=== PATIENT | male | born 1935 | race Caucasian/White ===

== ENCOUNTER 2016-05-17 10:38 | Emergency (ER) | payer MEDICARE, BC ==
[~2016-05-17] VITALS: Ht 177.8 cm; Wt 80.0 kg
[~2016-05-17 10:38] MED LIST: ASPI81TA82 PO; ATOR40TA49; METO50; OMPR20CCR; SYNT75TA OR; [UNRECOGNIZED DRUG - CODE] PO
[2016-05-17 10:40] VITALS: BP 166/74; PULSE 89; RESP 14; TEMP 98; O2SAT 97
[2016-05-17] MEDS ORDERED: ceFAZolin 2 GM PREMIX 50 ML IV ONE (12:00)
[2016-05-17] MEDS ORDERED: LEVOFLOXACIN 750 MG TAB PO ONE (12:00)
[2016-05-17] MEDS ORDERED: DOXYCYCLINE HYCLATE 100 MG TAB PO ONE (12:00)
[2016-05-17] MEDS ORDERED: TETANUS/DIPHTHERIA TOXOID ADULT 0.5 ML VIAL IM ONE (12:00)
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
--- NOTE | 2016-05-17 12:22 | RADRPT ---
EXAM DATE/TIME: 05/17/2016 12:08 [facility] COMPARISON: No previous studies available for comparison. INDICATIONS : Fall - right ankle pain and swelling. MEDICAL HISTORY : None. SURGICAL HISTORY : None. ENCOUNTER: Initial ACUITY: 4 - 6 days PAIN SCORE: 9/10 LOCATION: Right ankle FINDINGS: Three view exam was performed of the right ankle. The bony structures are in normal alignment. No e vidence of acute fracture or malalignment. There is soft tissue swelling over the ankle. The ankle mo rtise is intact. No radiopaque foreign bodies are seen. Bony mineralization is normal. CONCLUSION: Soft tissue swelling with no acute fracture or malalignment. Amarjit Matos MD on May 17, 2016 at 12:20 Board Certified Radiologist. This report was verified electronically.
--- NOTE | 2016-05-17 12:46 | RADRPT ---
EXAM DATE/TIME: 05/17/2016 12:20 [facility] COMPARISON: No previous studies available for comparison. INDICATIONS : Pain and swelling in right lower extremity. MEDICAL HISTORY : Carcinoma, bladder. Hypercholesterolemia. Aortic stenosis. Thyroid disease. GERD. TIA. SURGICAL HISTORY : Cholecystectomy. Aortic valve replacement. TURP. Pins in right hand. ENCOUNTER: Initial ACUITY: 2 weeks PAIN SCORE: 5/10 LOCATION: Right leg. TECHNIQUE: Venous ultrasound of the leg was performed from the inguinal ligament to the proximal calf. Real-marielle e, color Doppler and spectral tracing, compression and augmentation techniques were used. FINDINGS: There is normal compressibility of the deep venous system from the inguinal region to the proximal ca lf. No echogenic clot is seen in the lumen of the common femoral, femoral, popliteal, and posterior tibial veins. There is a normal response of the venous system to proximal and distal augmentation an d respiration. Edema is noted in the right calf region. CONCLUSION: Negative exam with no evidence of deep venous thrombosis. There is edema in the right calf region. Amarjit Matos MD on May 17, 2016 at 12:44 Board Certified Radiologist. This report was verified electronically.
[2016-05-17 13:23] LABS: AUTOMATED NEUTROPHIL # 4.7 TH/MM3 (1.8-7.7); BASOPHIL % 0.3 % (0.0-2.0); EOSINOPHIL # 0.2 TH/MM3 (0-0.4); EOSINOPHIL % 2.6 % (0.0-4.0); HEMATOCRIT 39.2 % (39.0-51.0); HEMO FLAGS DIFF FINAL; LYMPH % 16.7 % (9.0-44.0); LYMPHOCYTE # 1.1 TH/MM3 (1.0-4.8); MEAN CORPUSCULAR HEMOGLOBIN 32.6 PG (27.0-34.0); NEUT % 72.4 % (16.0-70.0); PLATELET COUNT 154 TH/MM3 (150-450); RED BLOOD COUNT 4.08 MIL/MM3 (4.50-5.90); RED CELL DISTRIBUTION WIDTH 13.7 % (11.6-17.2); WHITE BLOOD COUNT 6.5 TH/MM3 (4.0-11.0)
[2016-05-17 13:33] LABS: APTT (PATIENT) 30.8 SEC (24.3-30.1); PROTHROMBIN TIME - PATIENT 11.1 SEC (9.8-11.6)
[2016-05-17 13:42] LABS: ALT (GPT) 30 U/L (12-78); ANION GAP 6 MEQ/L (5-15); AST (GOT) 21 U/L (15-37); BICARBONATE 26.3 MEQ/L (21.0-32.0); BLOOD UREA NITROGEN 22 MG/DL (7-18); CHLORIDE 106 MEQ/L (98-107); GLOMERULAR FILTRATION RATE 57 ML/MIN (>89); POTASSIUM 4.2 MEQ/L (3.5-5.1); SODIUM (NA) 138 MEQ/L (136-145)
[2016-05-17 13:45] LABS: ALKALINE PHOSPHATASE 72 U/L (45-117); TOTAL BILIRUBIN ADULT 0.6 MG/DL (0.2-1.0)
[2016-05-17] MEDS ORDERED: CEPH-460 PO (14:06)
[2016-05-17] MEDS ORDERED: DOXY100C PO (14:06)
[2016-05-17] MEDS ORDERED: LEVA750T PO (14:06)
[2016-05-17 14:46] VITALS: BP 146/70
== END 2016-05-17 15:21 | disposition home or self-care (01) ==
LOC: NEPC 10:38
DX: L03.115 Cellulitis of right lower limb (principal); M79.661 Pain in right lower leg; R60.0 Localized edema; E78.00 Pure hypercholesterolemia, unspecified; Z79.01 Long term (current) use of anticoagulants; Z86.73 Personal history of transient ischemic attack (TIA), and cerebral infarction without residual deficits; K21.9 Gastro-esophageal reflux disease without esophagitis; E07.9 Disorder of thyroid, unspecified; Z23 Encounter for immunization; W27.8XXA Contact with other nonpowered hand tool, initial encounter; Y99.8 Other external cause status
CPT/HCPCS: 73610; 80053; 85025; 85610; 85730; 87040; 90471; 90714; 93971; 96365; 99284; J0690

== ENCOUNTER 2017-05-22 23:39 | Emergency (ER) | payer MEDICARE, BC ==
[~2017-05-22] VITALS: Ht 177.8 cm; Wt 79.5 kg
[~2017-05-22 23:39] MED LIST changes: +CEPH-460 PO; +DOXY100C PO; +LEVA750T PO
[2017-05-22 23:42] VITALS: BP 190/81; PULSE 74; RESP 16; TEMP 98.2; O2SAT 99
[2017-05-23] MEDS ORDERED: LIDOCAINE HCL 1% 50 ML VIAL INFIL ONE (00:30)
[2017-05-23] MEDS ORDERED: CLINDAMYCIN INJ 600 MG in SODIUM CHLORIDE 0.9% INJ 100 ML IV ONE (00:30)
--- NOTE | 2017-05-23 00:30 | PD ---
HPI Chief Complaint: Skin Problem Time Seen by Provider: 00:16 Travel History International Travel<30 days: No Contact w/Intl Traveler<30days: No Traveled to known affect area: No History of Present Illness HPI The patient is a 81-year-old male who presents to the emergency department for swelling in the right armpit that is now associated with erythema. The patient states the swelling started 2 days ago, the erythema started earlier today and is spread to the anterior chest wall. He denies any fever, chills, or sweats. He does note the area is somewhat tender to palpation. The patient has not followed up with his primary physician, who is Dr. Spears. The patient denies any history of continuing MRSA infections. 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 He denies any immunosuppressive medications or drugs. Symptoms are moderate, there are no current alleviating or exacerbating factors. He denies any drainage from the affected area. 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) GERD: Yes Medical other: Yes ([place]) Musculoskeletal: No Neurologic: No Thyroid Disease: Yes Tetanus Vaccination: < 5 Years Influenza Vaccination: Yes Past Surgical History Abdominal Surgery: No Cardiac Surgery: Yes (aortic valve replacement, LOOP RECORDER IN PLACE) Cholecystectomy: Yes Ear Surgery: No Endocrine Surgery: No Eye Surgery: No Genitourinary Surgery: Yes (turp) Gynecologic Surgery: No Oral Surgery: No Thoracic Surgery: No Other Surgery: Yes (pins in his right hand) Social History Alcohol Use: Yes (rarely) Tobacco Use: No Substance Use: No Allergies-Medications (Allergen,Severity, Reaction): Coded Allergies: No Known Allergies (Unverified , 08/28/11) Reported Meds & Prescriptions Reported Meds & Active Scripts Active Doxycycline Hyclate 100 Mg Cap 100 Mg PO BID Keflex (Cephalexin) 500 Mg Cap 500 Mg PO Q12H 10 Days Levaquin (Levofloxacin) 750 Mg Tab 750 Mg PO DAILY 5 Days Reported Prilosec 20 Mg Cap (Omeprazole) 20 Mg Capcr 20 Mg .XX Aspir-81 (Aspirin) 81 Mg Tab 81 Mg PO Fish Oil [id number] Mg 1,000 Mg Cap 1,200 Mg PO Lipitor 40 Mg Tab (Atorvastatin Calcium) 40 Mg Tab 40 Mg .XX Lopressor (Metoprolol Tartrate) 50 Mg Tab 12.5 Mg .XX Synthroid 75 mcg (Levothyroxine Sodium) 75 Mcg Tab 75 Mcg OR DAILY Review of Systems Except as stated in HPI: all other systems reviewed are Neg General / Constitutional: No: Fever, Chills Skin: Positive Other (As noted in history of present illness) Endocrine: No: Other (Denies any history diabetes) Physical Exam Narrative GENERAL: Awake, alert, pleasant 81-year-old male who appears his stated age and is in no acute respiratory distress. SKIN: Focused skin assessment warm/dry. HEAD: Atraumatic. Normocephalic. EYES: No injection or drainage. ENT: No nasal bleeding or discharge. Mucous membranes pink and moist. NECK: Trachea midline. No JVD. Chest: The patient has an abscess in the right axilla which measures about 3.5 cm x 2.5 cm. Underlying fluctuance noted. Surrounding erythema noted. MUSCULOSKELETAL: No obvious deformities. No clubbing. No cyanosis. No edema. NEUROLOGICAL: Awake and alert. No obvious cranial nerve deficits. Motor grossly within normal limits. Normal speech. PSYCHIATRIC: Appropriate mood and affect; insight and judgment normal. Data Data Last Documented VS Vital Signs Date Time Temp Pulse Resp B/P (MAP) Pulse Ox O2 Delivery O2 Flow Rate FiO2 05/22/17 23:42 98.2 74 16 190/81 (117) 99 Orders Orders Basic Metabolic Panel (Bmp) (05/23/17 00:23) Complete Blood Count With Diff (05/23/17:23) Blood Culture (05/23/17 00:23) Wound Culture And Gram Stain (05/23/17 00:23) Iv Access Insert/Monitor (05/23/17:23) Lidocaine 1% Inj (50 Ml) (Xylocaine 1% I (05/23/17 00:30) Clindamycin Inj (Cleocin Inj) (05/23/17 00:30) Lactic Acid (05/23/17 00:23) Labs Laboratory Tests Test 05/23/17 00:40 White Blood Count 7.3 TH/MM3 Red Blood Count 4.20 MIL/MM3 Hemoglobin 13.9 GM/DL Hematocrit 40.0 % Mean Corpuscular Volume 95.2 FL Mean Corpuscular Hemoglobin 33.2 PG Mean Corpuscular Hemoglobin Concent 34.9 % Red Cell Distribution Width 14.1 % Platelet Count 161 TH/MM3 Mean Platelet Volume 8.2 FL Neutrophils (%) (Auto) 63.4 % Lymphocytes (%) (Auto) 23.7 % Monocytes (%) (Auto) 8.6 % Eosinophils (%) (Auto) 3.8 % Basophils (%) (Auto) 0.5 % Neutrophils # (Auto) 4.6 TH/MM3 Lymphocytes # (Auto) 1.7 TH/MM3 Monocytes # (Auto) 0.6 TH/MM3 Eosinophils # (Auto) 0.3 TH/MM3 Basophils # (Auto) 0.0 TH/MM3 CBC Comment DIFF FINAL Differential Comment Blood Urea Nitrogen 25 MG/DL Creatinine 1.52 MG/DL Random Glucose 94 MG/DL Calcium Level 9.0 MG/DL Sodium Level 138 MEQ/L Potassium Level 4.0 MEQ/L Chloride Level 103 MEQ/L Carbon Dioxide Level 29.3 MEQ/L Anion Gap 6 MEQ/L Estimat Glomerular Filtration Rate 44 ML/MIN Lactic Acid Level 1.0 mmol/L [facility] Medical Decision Making Medical Screen Exam Complete: Yes Emergency Medical Condition: Yes Medical Record Reviewed: Yes Interpretation(s) Laboratory Tests Test 05/23/17 00:40 White Blood Count 7.3 TH/MM3 Red Blood Count 4.20 MIL/MM3 Hemoglobin 13.9 GM/DL Hematocrit 40.0 % Mean Corpuscular Volume 95.2 FL Mean Corpuscular Hemoglobin 33.2 PG Mean Corpuscular Hemoglobin Concent 34.9 % Red Cell Distribution Width 14.1 % Platelet Count 161 TH/MM3 Mean Platelet Volume 8.2 FL Neutrophils (%) (Auto) 63.4 % Lymphocytes (%) (Auto) 23.7 % Monocytes (%) (Auto) 8.6 % Eosinophils (%) (Auto) 3.8 % Basophils (%) (Auto) 0.5 % Neutrophils # (Auto) 4.6 TH/MM3 Lymphocytes # (Auto) 1.7 TH/MM3 Monocytes # (Auto) 0.6 TH/MM3 Eosinophils # (Auto) 0.3 TH/MM3 Basophils # (Auto) 0.0 TH/MM3 CBC Comment DIFF FINAL Differential Comment Blood Urea Nitrogen 25 MG/DL Creatinine 1.52 MG/DL Random Glucose 94 MG/DL Calcium Level 9.0 MG/DL Sodium Level 138 MEQ/L Potassium Level 4.0 MEQ/L Chloride Level 103 MEQ/L Carbon Dioxide Level 29.3 MEQ/L Anion Gap 6 MEQ/L Estimat Glomerular Filtration Rate 44 ML/MIN Lactic Acid Level 1.0 mmol/L Differential Diagnosis Differential diagnosis includes abscess, cellulitis, infected wound, lymphadenitis. Narrative Course Labs are drawn and sent. CBC and lactic acid were sent to lab. The patient's abscess was open, incised, drained by the physician food and nutrition services assistant. Please refer to the procedure note. Blood culture and wound culture were sent to lab. White count is normal. Lactic acid is unremarkable. The patient will be treated with clindamycin while cultures are pending. He is advised to follow-up with his primary physician. Return if symptoms worsen or progress. Diagnosis Primary Impression: Cellulitis and abscess of unspecified site Patient Instructions: General Instructions Additional Instructions: Medications as directed. Apply warm compresses to the affected area. Follow- up with your primary physician. Return if symptoms worsen or progress. Med/Other Pt SpecificInfo: Prescription(s) given Scripts Clindamycin (Cleocin) 150 Mg Cap 150 MG PO Q6H for Infection for 7 Days, #28 CAP 0 Refills Prov: Agus Leung MD 05/23/17 Disposition: DISCHARGE HOME Condition: Stable Agus Leung MD May 23, 2017 00:30
[2017-05-23 00:58] LABS: AUTOMATED NEUTROPHIL # 4.6 TH/MM3 (1.8-7.7); BASOPHIL % 0.5 % (0.0-2.0); EOSINOPHIL # 0.3 TH/MM3 (0-0.4); EOSINOPHIL % 3.8 % (0.0-4.0); HEMOGLOBIN 13.9 GM/DL (13.0-17.0); LYMPH % 23.7 % (9.0-44.0); LYMPHOCYTE # 1.7 TH/MM3 (1.0-4.8); MEAN CELL VOLUME 95.2 FL (80.0-100.0); MEAN CORPUSCULAR HEMOGLOBIN 33.2 PG (27.0-34.0); MEAN CORPUSCULAR HGB CONC 34.9 % (32.0-36.0); MEAN PLATELET VOLUME 8.2 FL (7.0-11.0); MONO % 8.6 % (0.0-8.0); MONOCYTE # 0.6 TH/MM3 (0-0.9); NEUT % 63.4 % (16.0-70.0); PLATELET COUNT 161 TH/MM3 (150-450); RED CELL DISTRIBUTION WIDTH 14.1 % (11.6-17.2); WHITE BLOOD COUNT 7.3 TH/MM3 (4.0-11.0)
[2017-05-23 01:11] LABS: BICARBONATE 29.3 MEQ/L (21.0-32.0); CREATININE 1.52 MG/DL (0.60-1.30)
--- NOTE | 2017-05-23 01:12 | PD ---
Physical Exam Date Seen by Provider: May 23, 2017 Time Seen by Provider: 01:09 Narrative Skin: Patient has a indurated area to the right axilla measuring approximately 2 x 4 cm. There is an area of surrounding erythema and warmth. Tender to touch. No pointing or fluctuance. Data Data Last Documented VS Vital Signs Date Time Temp Pulse Resp B/P (MAP) Pulse Ox O2 Delivery O2 Flow Rate FiO2 05/22/17 23:42 98.2 74 16 190/81 (117) 99 Orders Orders Basic Metabolic Panel (Bmp) (05/23/17 00:23) Complete Blood Count With Diff (05/23/17 00:23) Blood Culture (05/23/17:23) Wound Culture And Gram Stain (05/23/17:23) Iv Access Insert/Monitor (05/23/17:23) Lidocaine 1% Inj (50 Ml) (Xylocaine 1% I (05/23/17 00:30) Clindamycin Inj (Cleocin Inj) (05/23/17 00:30) Lactic Acid (05/23/17 00:23) Labs Laboratory Tests Test 05/23/17 00:40 White Blood Count 7.3 TH/MM3 Red Blood Count 4.20 MIL/MM3 Hemoglobin 13.9 GM/DL Hematocrit 40.0 % Mean Corpuscular Volume 95.2 FL Mean Corpuscular Hemoglobin 33.2 PG Mean Corpuscular Hemoglobin Concent 34.9 % Red Cell Distribution Width 14.1 % Platelet Count 161 TH/MM3 Mean Platelet Volume 8.2 FL Neutrophils (%) (Auto) 63.4 % Lymphocytes (%) (Auto) 23.7 % Monocytes (%) (Auto) 8.6 % Eosinophils (%) (Auto) 3.8 % Basophils (%) (Auto) 0.5 % Neutrophils # (Auto) 4.6 TH/MM3 Lymphocytes # (Auto) 1.7 TH/MM3 Monocytes # (Auto) 0.6 TH/MM3 Eosinophils # (Auto) 0.3 TH/MM3 Basophils # (Auto) 0.0 TH/MM3 CBC Comment DIFF FINAL Differential Comment Lactic Acid Level 1.0 mmol/L MDM Medical Record Reviewed: Yes Supervised Visit with SHANE: Yes Interpretation(s) CBC & BMP Diagram 05/23/17 00:40 Differential Diagnosis MDM: High Differential diagnoses: Abscess, folliculitis, cellulitis, lymphangitis, abrasion, contact dermatitis Narrative Course An incision and drainage has been performed. Procedures Procedure Narrative I&D abscess: After the risks and benefits were discussed the following procedure was performed. The skin is prepped and draped in the usual sterile fashion using Betadine. The abscess is anesthetized with 1% lidocaine with epinephrine. After adequate anesthesia, an 15 blade scalpel is used to make a 2 centimeter central incision. Perulant material is expressed and cultured. Loculations are broken up using curved Reina forceps. The wound is cleansed deeply using dilute Betadine and peroxide on Q-tips. The wound is packed open using iodoform gauze. A clean dressing is applied. The patient tolerated the procedure well. There was no complications. Follow-up instructions were given to the patient. Additional Instruction: Rest. Elevation. keep clean and dry. remove the packing in two days. Daily wound care with soap, water and Neosporin. Medications as directed. Follow-up with a primary care doctor in one week. Return to the ER for any problems. Condition: Stable Roni Farah May 23, 2017 01:12
[2017-05-23] MEDS ORDERED: CLIN150 PO (01:48)
== END 2017-05-23 02:18 | disposition home or self-care (01) ==
LOC: NEPC 23:39
DX: L03.111 Cellulitis of right axilla (principal); L02.411 Cutaneous abscess of right axilla; B95.62 Methicillin resistant Staphylococcus aureus infection as the cause of diseases classified elsewhere; I10 Essential (primary) hypertension; E78.00 Pure hypercholesterolemia, unspecified; Z85.51 Personal history of malignant neoplasm of bladder; Z95.2 Presence of prosthetic heart valve; Z86.73 Personal history of transient ischemic attack (TIA), and cerebral infarction without residual deficits; Z79.82 Long term (current) use of aspirin; Z79.899 Other long term (current) drug therapy
CPT/HCPCS: 10061; 80048; 83605; 85025; 86403; 87040; 87070; 87186; 96365